=== PATIENT | female | born 1975 | race Caucasian/White ===

== ENCOUNTER → 2017-09-25 | Emergency (ER) | payer OTHER ==
[~2017-09-25] VITALS: Ht 165.1 cm; Wt 68.9 kg
[~2017-09-25] MED LIST: COLD & FLU SEV1 EACH; INTEGRA F CAPS1 EACH PO
== END | disposition home or self-care (01) ==
LOC: ER 23:33
DX: B34.9 Viral infection, unspecified (principal)